=== PATIENT | male | born 1965 | race Caucasian/White ===

== ENCOUNTER 2019-10-08 11:06 | Emergency (ER) | payer OTHER, SELFPAY ==
--- NOTE | ~2019-10-08 | XR_ITS ---
XR chest 2V 10/08/2019 13:39 Indication: Abdomen pain. Left lower lobe infiltrate seen on CT. Procedure: 2 view chest Comparison: CT dated 10/08/2019 Findings: Left lower lobe airspace disease. Small left effusion. Heart size normal. Right lung clear. No edema or pneumothorax. There is an old healed left clavicular fracture. Impression: 1: Left lower lobe infiltrates, likely atelectasis. 2: Small left pleural effusion. Reviewed, dictated and finalized at location A. ING HEAD TENDER Impression: 1: Left lower lobe infiltrates, likely atelectasis. 2: Small left pleural effusion.
--- NOTE | ~2019-10-08 | CT_ITS ---
EXAMINATION: CT abdomen pelvis w con DATE: 10/08/2019 13:02 INDICATION: Epigastric pain TECHNIQUE: Computed tomography (CT) of the abdomen and pelvis was performed with 100 cc Omnipaque 350 intravenous contrast. The dose-length product was 646.58 mGy-cm. Automated exposure control and iter ative reconstruction technique were employed. COMPARISON: None. FINDINGS: Left lower lobe atelectasis. Heart size normal. Small left pleural effusion. There is a gas tric diverticulum. The spleen, pancreas, adrenal glands are unremarkable. Kidneys are normal. There is fatty infiltratio n of the liver. Gallbladder is present. Nonobstructive bowel gas pattern. No evidence for diverticuli tis or appendicitis. No free air or free fluid. No abnormal pelvic masses or fluid collections. Mild lumbar spondylosis. IMPRESSION: 1. Small left pleural effusion with left lower lobe atelectasis. 2: Gastric diverticulum. 3: Hepatic steatosis. Reviewed, dictated and finalized at location A. S AND SERVICE REPRESENTATIVE
[2019-10-08 11:22] VITALS: BP 148/95; PULSE 89; RESP 16; TEMP 36.6; O2SAT 98
--- NOTE | 2019-10-08 12:04 | ED.ABDPAIN ---
HPI - Abdominal Pain General Chief Complaint: Abdominal Pain Stated Complaint: stomach problems Time Seen by Provider: 10/08/19 12:00 Source: patient Mode of arrival: ambulatory Limitations: no limitations History of Present Illness HPI narrative: The pt is a 53 y/o male who presents to the ED c/o LLQ ABD pain onset 2 days ago. The pt has a PMHx of IBS, and has seen a lube worker previously. He did not have a colonoscopy performed. Pt states that he had some crab cakes that he has not eaten for a decade. Pt states that he then went home, and the pain began. The pt notes that the pain is not worsened or improved by anything, but also states that he has not taken any pain medication. He was unable to sleep due to it, and then he experienced N/V the next day. Pt reports N/V, but denies diarrhea, fever, and chills. MD elicited complaint: abdominal pain (LLQ) Pertinent past history: other (IBS) Onset (ago): day(s) (2) Location: LLQ Exacerbating factors: nothing Relieving factors: nothing Context: confirms possible food poisoning (Crab cakes) Associated symptoms: nausea and vomiting Related Data Allergies Allergy/AdvReac Type Severity Reaction Status Date / Time No Known Allergies Allergy Verified 10/08/19 11:27 Review of Systems Review of Systems: All systems reviewed & are unremarkable except as noted in HPI and below Constitutional: Constitutional: Denies chills and Denies fever(s) Gastrointestinal: Gastrointestinal: Reports abdominal pain (LLQ), Denies diarrhea, Reports nausea and Reports vomiting PMFSH Past Medical History Medical History (Updated 10/08/19 @ 15:05 by Armani Centeno DO) Herniated disc IBS (irritable bowel syndrome) Surgical History Surgical History (Updated 10/08/19 @ 12:16 by Carlos Eduardo Tenorio) H/O Spinal surgery Herniated disc Family History Family History (Updated 02/29/16 @ 23:21 by DOCTOR UNKNOWN) Mother Patient's mother is Family history of pancreatic cancer Father Family history of coronary artery disease Grandparent Diabetes mellitus Social History Social History (Updated 10/08/19 @ 12:17 by Carlos Eduardo Tenorio) Smoking status: Former smoker Alcohol intake: current Gender identity (if verbalized by the patient): Male Comments PCP: Dr. Fuentes Exam Narrative: Exam Narrative: APPEARANCE: No acute distress, nontoxic, resting in bed HEENT: Normocephalic, atraumatic, OMM RESPIRATORY: No respiratory distress, clear to auscultation bilaterally with no rhonchi wheezing or rales CARDIOVASCULAR: RRR s murmur ABDOMINAL: Soft, nondistended, tender palpation left lower quadrant, no tenderness left upper quadrant, right upper quadrant right lower quadrant, no rebound or guarding, MUSCULOSKELETAl: Moves all extremities. No clubbing, cyanosis or edema. NEURO: Awake and alert. Following commands, speech normal, no focal deficits SKIN:: Warm, dry. Normal Color PSYCHIATRIC: Normal affect/mood Course Course Emergency Course: Following CT results discussed with patient patient states he has had no recent coughing denies any fevers denies any pain in the left upper quadrant left lower chest with current BNP normal no white count suspect small effusion and will have patient follow-up with his PCP Patient states that they are feeling much better at this time. States abdominal pain has resolved. Repeat abdominal exam shows the patient's abdomen to be soft and nontender. Discussed with patient results of workup and diagnosis. Discussed need for follow-up with primary care physician, reasons to return to the emergency department in proper use of medication. Patient understands and agrees to current treatment plan Consultations Consultation #1: Diussed case with Keely OLIVA, agrees with plan for no antibiotics and to follow up outpatient. Date: 10/08/19 Time: 14:59 Vital Signs Vital signs: Vital Signs Temperature 98 F 10/08/19 11:22 Pulse Rate 89
[2019-10-08 12:26] LABS: Basophils Percent Auto 0.7 % (0.2-1.2); Eosinophils Absolute Auto 0.1 K/mm3 (0-0.3); Eosinophils Percent Auto 1.6 % (0-4.4); Hematocrit 46.6 % (42.0-52.0); Hemoglobin 15.8 g/dL (14.0-18.0); Immature Granulocyte Absolute 0.02 K/mm3 (0.00-0.031); Immature Granulocyte Percent A 0.4 % (0-0.5); Lymphocytes Absolute Auto 0.94 K/mm3 (0.9-3.2); Lymphocytes Percent Auto 16.5 % (18.3-44.2); Mean Corpuscular HGB Conc 33.9 g/dl (32-36); Mean Corpuscular Hemoglobin 30.9 pg (26-34); Mean Platelet Volume 9.8 fl (7.4-10.4); Monocytes Absolute Auto 0.5 K/mm3 (0.1-0.6); Monocytes Percent Auto 8.6 % (2.6-8.5); Neutrophils Absolute Auto 4.1 K/mm3 (1.3-6.7); Neutrophils Percent Auto 72.2 % (45.5-73.1); Platelet Count Result 307 k/mm3 (150-375); Red Blood Count 5.12 M/mm3 (4.6-6.20); Red Cell Distribution Width 12.5 % (11.5-14.5); White Blood Count 5.7 K/mm3 (4.5-10.0)
[2019-10-08] MEDS: LACTATED RINGERS 1,000 ML 999 ML IV CONT (12:31)
[2019-10-08] MEDS: ONDANSETRON INJ 4 MG/2 ML VIAL IV PUSH (12:31)
[2019-10-08 12:39] LABS: Alanine Aminotransferase 33 U/L (4-50); Albumin Level 4.9 g/dL (3.5-5.1); Alkaline Phosphatase 85 U/L (38-126); Aspartate Amino Transferase 31 U/L (17-59); Bilirubin,Total 0.8 mg/dL (0.2-1.3); Blood Urea Nitrogen 14 mg/dL (9-20); Calcium 9.6 mg/dL (8.4-10.2); Carbon Dioxide 28 mmol/L (22-30); Chloride 99 mmol/L (98-107); Estimated CRCL calculation 75 ml/min; Estimated Glomerular Filt Rate > 60; Glucose 101 mg/dL (75-110); Lipase 81 U/L (23-300); Potassium 3.8 mmol/L (3.4-5.0); Sodium 136 mmol/L (137-145)
[2019-10-08 14:04] LABS: NT Pro B Type Natriuretic Pept 33 PG/ML (5-100)
[2019-10-08 16:22] LABS: Add Urine Microscopic? YES; Appearance Urine Clear (Clear); Bilirubin Urine Negative (Negative); Blood Urine 1+ (Negative); Color Urine Yellow (Yellow); Glucose Urine UA Negative (Negative); Ketones Urine 1+ mg/dL (Negative); Leukocyte Esterase Ur Negative LEU/UL (Negative); Mucus Urine Rare /lpf; Nitrate Urine Negative (Negative); Protein Urine Negative (Negative); Urobilinogen Urine Negative mg/dL (<2.0); WBC Urine 0-3 /hpf
[2019-10-08 16:23] LABS: Specific Grav Ur 1.057 (1.001-1.035)
[2019-10-08 16:35] VITALS: BP 132/70; PULSE 86; RESP 18; O2SAT 100
== END 2019-10-08 16:37 | disposition home or self-care (01) ==
PROVIDERS: Emergency Medicine; Emergency Provider Emergency Medicine; PCP Family Medicine
DX: R10.32 Left lower quadrant pain (principal); K58.9 Irritable bowel syndrome, unspecified; Z87.891 Personal history of nicotine dependence; J90 Pleural effusion, not elsewhere classified; K76.0 Fatty (change of) liver, not elsewhere classified; K31.4 Gastric diverticulum
CPT/HCPCS: 36415; 71046; 74177; 80053; 81001; 83690; 83880; 85025; 96361; 96374; 96375; 99284; J0131; J2405; J7120; Q9967

== ENCOUNTER 2021-07-09 13:25 | Inpatient (IN) | payer OTHER, SELFPAY ==
--- NOTE | ~2021-07-09 | XR_ITS ---
EXAMINATION: XR chest 2V DATE: 07/09/2021 14:19 INDICATION: Shortness of breath, weakness, headache and fever TECHNIQUE: frontal view of the chest was obtained. COMPARISON: Chest radiograph dated 10/08/2019 FINDINGS: Subtle patchy airspace opacities in the left mid and lower lung zone. No pleural effusion or pneumoth orax. The cardiomediastinal silhouette is normal. Old healed bilateral clavicle fractures. IMPRESSION: 1. Subtle opacities in the left mid to lower lung zones which could represent pneumonia, atelectasis or asymmetric pulmonary edema. Reviewed, dictated and finalized at location B. ING MANAGER IMPRESSION: 1. Subtle opacities in the left mid to lower lung zones which could represent p neumonia, atelectasis or asymmetric pulmonary edema.
--- NOTE | ~2021-07-09 | CT_ITS ---
EXAMINATION: CTA chest PE protocol EXAM DATE: 07/09/2021 18:16 INDICATION: sob , elevated d dimer . TECHNIQUE: Spiral CTA of the chest (pulmonary arteries) was performed with 100 cc Omnipaque 350 intr avenous contrast injection. Images were acquired during the pulmonary arterial phase. Coronal maxi mum intensity projection 3D-reconstructions were created by the technologist on dedicated workstation . Axial, coronal and sagittal reformatted images were reviewed. The dose-length product (DLP) for t his examination was 417.09 mGy-cm. The exposure was tailored according to patient size (auto mA exp osure control), and iterative reconstruction (ASIR) was used as additional dose reduction technique. There is no prior study for comparison. FINDINGS: Pulmonary arteries are well opacified and without intraluminal filling defects. No thora cic aortic dissection. There is moderate amount of predominantly groundglass airspace disease. Coul d be COVID pneumonia, but with other acute possibilities include influenza, pulmonary edema or hemorr mary. Some chronic processes that can have this appearance include cryptogenic organizing pneumonia, desquamative interstitial pneumonia, nonspecific interstitial pneumonia, drug toxicity, connective ti ssue disease. Please clinically correlate and test as appropriate. Additional left lower lobe subsegmental atelectasis. Small left and trace right pleural effusions. Tr acheobronchial tree is patent. Borderline sized prevascular lymph nodes probably reactive. There i s no pneumothorax. Heart normal in size. No evidence of coronary arterial calcification. Gastric cardial diverticulum. There is thoracic spondylosis without osteoblastic or osteolytic lesions iden tified. IMPRESSION: 1. Moderate amount of bilateral airspace disease, could be COVID or other acute infectious process. Other possibilities above. 2. Left basilar segmental atelectasis. 3. Small left, trace right pleural effusions. Reviewed, dictated and finalized at location A. E CUTTER HELPER IMPRESSION: 1. Moderate amount of bilateral airspace disease, could be COVID or other acut e infectious process. Other possibilities above. 2. Left basilar segmental atelectasis. 3. Small left, trace right pleural effusions.
[2021-07-09 13:47] VITALS: BP 87/55; PULSE 106; RESP 18; TEMP 35.9; O2SAT 93
--- NOTE | 2021-07-09 13:51 | ECG_ITS ---
Measurements Intervals [place] Rate: 102 P: 50 ND: 172 QRS: 77 QRSD: 114 T: 45 QT: 330 QTc: 432 Interpretive Statements SINUS TACHYCARDIA INCOMPLETE RIGHT BUNDLE BRANCH BLOCK DELAYED PRECORDIAL R/S TRANSITION MINIMAL Q WAVES- INFERIOR LEADS BORDERLINE T WAVE ABNORMALITY- ANTERIOR LEADS BASELINE ARTIFACT- I, II, III, AVR, AVL, AVF, V1-V3 BORDERLINE ECG Electronically Signed On 07-09-2021 14:49:49 TURF FARMER by Satnam Castaneda D.O.
--- NOTE | 2021-07-09 14:03 | PC.NURSE ---
arc furnace operator aware of, pt, waiting for direction on room assignment
[2021-07-09 14:17] LABS: Basophils Percent Auto 0.3 % (0.2-1.2); Eosinophils Percent Auto 0.3 % (0-4.4); Hematocrit 43.9 % (42.0-52.0); Hemoglobin 15.7 g/dL (14.0-18.0); Immature Granulocyte Absolute 0.07 K/mm3 (0.00-0.031); Immature Granulocyte Percent A 1.1 % (0-0.5); Lymphocytes Absolute Auto 0.68 K/mm3 (0.9-3.2); Lymphocytes Percent Auto 10.5 % (18.3-44.2); Mean Corpuscular HGB Conc 35.8 g/dl (32-36); Mean Corpuscular Hemoglobin 31.9 pg (26-34); Mean Corpuscular Volume 89.2 fl (80-100); Mean Platelet Volume 9.6 fl (7.4-10.4); Monocytes Absolute Auto 0.9 K/mm3 (0.1-0.6); Monocytes Percent Auto 14.1 % (2.6-8.5); Neutrophils Absolute Auto 4.8 K/mm3 (1.3-6.7); Neutrophils Percent Auto 73.7 % (45.5-73.1); Platelet Count Result 254 k/mm3 (150-375); Red Blood Count 4.92 M/mm3 (4.6-6.20); Red Cell Distribution Width 12.4 % (11.5-14.5); White Blood Count 6.5 K/mm3 (4.5-10.0)
[2021-07-09 14:29] LABS: Alanine Aminotransferase 38 U/L (4-50); Albumin Level 3.8 g/dL (3.5-5.1); Alkaline Phosphatase 58 U/L (38-126); Anion Gap 8 mmol/L (8-16); Aspartate Amino Transferase 57 U/L (17-59); Bilirubin,Total 0.7 mg/dL (0.2-1.3); Blood Urea Nitrogen 17 mg/dL (9-20); Calcium 8.6 mg/dL (8.4-10.2); Carbon Dioxide 30 mmol/L (22-30); Chloride 94 mmol/L (98-107); Estimated CRCL calculation 79 ml/min; Estimated Glomerular Filt Rate > 60; Glucose 121 mg/dL (65-110); Potassium 3.4 mmol/L (3.4-5.0); Sodium 132 mmol/L (137-145)
[2021-07-09 15:05] LABS: Lactate Dehydrogenase 1597 U/L (313-618); Lactic Acid Reflex 1.5 mmol/L (0.7-2.1); Lipase 178 U/L (23-300)
[2021-07-09 15:13] LABS: Troponin I < 0.012 ng/mL (0.000-0.034)
[2021-07-09 15:44] VITALS: BP 115/81; PULSE 90; RESP 16; O2SAT 94
[2021-07-09 15:49] LABS: Ferritin > 1000.00 ng/mL (11.1-264)
[2021-07-09 16:15] LABS: Free T4 Free Thyroxine Reflex 1.76 ng/dL (0.78-2.19)
--- NOTE | 2021-07-09 16:41 | ED.WEAKNESS ---
HPI - Weakness General Chief complaint: Weakness <Nino Colmenares MD - Last Filed: 07/09/21 16:51> Stated complaint: SOB, WEAK <Nino Colmenares MD - Last Filed: 07/09/21 16:51> Time Seen by Provider: 07/09/21 14:19 <Nino Colmenares MD - Last Filed: 07/09/21 16:51> Source: patient <Nino Colmenares MD - Last Filed: 07/09/21 16:51> Mode of arrival: ambulatory <Nino Colmenares MD - Last Filed: 07/09/21 16:51> Limitations: no limitations <Nino Colmenares MD - Last Filed: 07/09/21 16:51> History of Present Illness HPI Narrative: 55-year-old male Complains of severe generalized fatigue and weakness Patient mentioned that 1 day 2 or 3 weeks ago he had a bad headache and since then he just has not really felt right He does not have any particular focal symptoms Specifically he does not have a headache or sinus problems, no sore throat, does not have a cough, he has been eating okay and has no vomiting or diarrhea, and no symptoms The main thing that he notices is that he gets extremely fatigued very quickly as soon as he tries to do anything, however, does not have exertional chest pain or dyspnea Notably not immunized against Covid and does not know if he has been exposed or not <Nino Comlenares MD - Last Filed: 07/09/21 16:51> Related Data Home medications: Home Medications Medication Instructions Recorded Confirmed No Home Medications 07/09/21 07/09/21 <Nino Colmenares MD - Last Filed: 07/09/21 16:51> Allergies/Adverse reactions: Allergies Allergy/AdvReac Type Severity Reaction Status Date / Time No Known Allergies Allergy Verified 07/09/21 14:41 <Nino Colmenares MD - Last Filed: 07/09/21 16:51> Review of Systems Review of Systems: All systems reviewed & are unremarkable except as noted in HPI and below <Nino Colmenares MD - Last Filed: 07/09/21 16:51> Constitutional: Constitutional: Reports no additional constitutional complaints, Denies chills, Reports fatigue, Denies fever(s), Denies headache(s) and Reports weakness <Nino Colmenares MD - Last Filed: 07/09/21 16:51> Eyes: Eyes: Reports no additional eye complaints and Denies change in vision <Nino Colmenares MD - Last Filed: 07/09/21 16:51> ENT: Denies headache(s) and Denies sore throat <Nino Colmenares MD - Last Filed: 07/09/21 16:51> Cardiovascular: Cardiovascular: Denies chest pain and Denies dyspnea <Nino Colmenares MD - Last Filed: 07/09/21 16:51> Respiratory: Respiratory: Denies cough and Denies dyspnea <Nino Colmenares MD - Last Filed: 07/09/21 16:51> Gastrointestinal: Gastrointestinal: Denies abdominal pain, Denies diarrhea, Denies nausea and Denies vomiting <Nino Colmenares MD - Last Filed: 07/09/21 16:51> Genitourinary: Genitourinary: Denies dysuria and Denies urinary frequency <Nino Colmenares MD - Last Filed: 07/09/21 16:51> Musculoskeletal: Musculoskeletal: Reports myalgias, Denies deformity, Denies arthralgias, Denies joint swelling and Denies numbness <Nino Colmenares MD - Last Filed: 07/09/21 16:51> Integumentary/Breasts: Skin/Breast: Denies rash and Denies wounds <Nino Colmenares MD - Last Filed: 07/09/21 16:51> Neurologic: Reports dizziness, Denies syncope, Reports headache(s), Denies focal weakness and Denies numbness <Nino Colmenares MD - Last Filed: 07/09/21 16:51> Psychiatric: Psychiatric: Reports no additional psychiatric complaints <Nino Colmenares MD - Last Filed: 07/09/21 16:51> Endocrine: Endocrine: Reports no additional endocrine complaints <Nino Colmenares MD - Last Filed: 07/09/21 16:51> Hematologic/Lymphatic: Hematologic/Lymphatic: Reports no additional hematologic/lymphatic complaints <Nino Colmenares MD - Last Filed: 07/09/21 16:51> Allergic/Immunologic: Allergic/Immunologic: Reports no additional allergic/immunologic complaints <Nino Colmenares MD - Last Filed: 07/09/21 16:51> [facility] Past Medical History Medical History: Medical History (Reviewed
--- NOTE | 2021-07-09 17:13 | PC.NURSE ---
Attempted to walk pt per 's verbal orders. Due to weakness, pt unable to take more than 2 steps and then needed to get back into bed. SpO2 stayed at 93%.
[2021-07-09 17:15] VITALS: BP 97/66; PULSE 87; RESP 16; O2SAT 94
[2021-07-09 17:15] LABS: Total Triiodothyronine (T3) 0.93 NG/ML (0.97-1.69)
[2021-07-09 17:24] LABS: D Dimer 2.46 ug/mL (<0.48)
--- NOTE | 2021-07-09 18:12 | PC.NURSE ---
Pt to CT.
--- NOTE | 2021-07-09 18:16 | PC.NURSE ---
Pt still unable to provide urine sample at this time.
[2021-07-09] MEDS: DEXAMETHASONE SOD PHOS INJ 4 MG/ML VIAL 6 MG IV PUSH (19:23)
[2021-07-09] MEDS: SODIUM CHLORIDE 0.9% IV 1,000 ML 125 ML IV CONT (19:23)
[2021-07-09 20:00] VITALS: BP 101/70; PULSE 83; RESP 18; TEMP 36.6; O2SAT 95
[2021-07-09 20:45] VITALS: BP 96/69; PULSE 100; RESP 18; O2SAT 94
--- NOTE | 2021-07-09 21:27 | PM.IMHP ---
H&P: HPI History of Present Illness Date/Time: 07/09/21 21:27 this is a 55-year-old male patient who is on vaccinated and stated that he has not had any exposure to COVID-19. The patient stated that he wears his mask out public. Patient came to the emergency room for complaints of generalized fatigue and weakness. The patient stated that he could not walk in to the hospital. He has been weak for 2-3 weeks. He had a headache of few weeks ago and just has not felt right since then. No focal weakness. He currently does not have any sinus problems or headache loss of taste loss of smell nor dizzy of a sore throat or cough or fever no nausea vomiting diarrhea. Chest x-ray was read as subtle opacities in the left mid and lower lung zones which could represent pneumonia atelectasis or asymmetric pulmonary edema. Chest CTA was read as 1. Moderate amount of bilateral airspace disease, could be COVID or other acute infectious process. Other possibilities above. 2. Left basilar segmental atelectasis. 3. Small left, trace right pleural effusions. D-dimers 2.46 sodium 132. Ferritin greater than a 1000. LDH 1597. COVID test is pending. The patient is on room air. The patient has no past medical history and is not on any medication. The patient was started on Decadron. The patient is being admitted to observation status on the date of service of 07/09/2021. Chief Complaint: Weakness Review of Systems Review of Systems: All systems reviewed & are unremarkable except as noted in HPI and below Constitutional: Constitutional: Reports as per HPI and Reports no additional constitutional complaints Eyes: Eyes: Reports as per HPI and Reports no additional eye complaints ENT: Reports system reviewed and no additional complaints, except as documented and Reports Normal hearing present Cardiovascular: Cardiovascular: Reports no additional cardiovascular complaints Respiratory: Respiratory: Reports no additional respiratory complaints and Reports no additional respiratory complaints Gastrointestinal: Gastrointestinal: Reports as per HPI and Reports no additional gastrointestinal complaints Musculoskeletal: Musculoskeletal: Reports no additional musculoskeletal complaints Integumentary/Breasts: Skin/Breast: Reports system reviewed and no additional complaints, except as docu and Reports as per HPI Neurologic: Reports system reviewed and no additional complaints, except as documented, Reports as per HPI and Reports Normal hearing present Psychiatric: Psychiatric: Reports no additional psychiatric complaints and Reports as per HPI Endocrine: Endocrine: Reports no additional endocrine complaints Hematologic/Lymphatic: Hematologic/Lymphatic: Reports no additional hematologic/lymphatic complaints Allergic/Immunologic: Allergic/Immunologic: Reports no additional allergic/immunologic complaints [facility] Past Medical History Medical History BMI 26.0-26.9,adult DDD (degenerative disc disease), lumbosacral Decreased sex drive Dietary counseling and surveillance (03/04/19) Diverticulosis of large intestine without hemorrhage Diverticulum, gastric Herniated disc IBS (irritable bowel syndrome) Low testosterone LUQ abdominal pain Mixed hyperlipidemia Right elbow pain Screening for malignant neoplasm of prostate Shift work sleep disorder Vitamin D deficiency Surgical History Surgical History H/O Spinal surgery Herniated disc Family History Family History Mother Patient's mother is Family history of pancreatic cancer Father Family history of coronary artery disease Acute myocardial infarction Grandparent Diabetes mellitus Social History Social History (Updated 07/09/21 @ 21:45 by Yanique Bloom NP) Social History: The patient is single and lives alone. H
[2021-07-09 21:48] VITALS: BP 101/70; PULSE 83; RESP 18; TEMP 36.6; O2SAT 95
--- NOTE | 2021-07-09 23:36 | ADMGEN ---
This patient, Duane Wolf, was admitted to [facility] Surg Room 311-01. Patient/family oriented to hospital policies and general routines including ID bracelet, bed and alarms, visiting hours, pain management, procedures, bathroom and other care routines, personal items, smoking policy, room service/diet, and visiting hours. Information on how to activate the Rapid Response Team has been discussed. Patient/Family are encouraged to report perceived risks to care and to ask questions if they do not understand what they are told or what they should do.
[2021-07-10] VITALS (9 sets, daily range): BP systolic 95–113; BP diastolic 60–79; PULSE 66–85; RESP 14–18; TEMP 35.8–36.7; O2SAT 91–98
[2021-07-10 07:39] LABS: Basophils Percent Auto 1.1 % (0.2-1.2); Hematocrit 42.5 % (42.0-52.0); Hemoglobin 14.7 g/dL (14.0-18.0); Immature Granulocyte Absolute 0.07 K/mm3 (0.00-0.031); Immature Granulocyte Percent A 1.9 % (0-0.5); Lymphocytes Absolute Auto 0.54 K/mm3 (0.9-3.2); Lymphocytes Percent Auto 14.4 % (18.3-44.2); Mean Corpuscular HGB Conc 34.6 g/dl (32-36); Mean Corpuscular Hemoglobin 30.9 pg (26-34); Mean Corpuscular Volume 89.3 fl (80-100); Mean Platelet Volume 9.7 fl (7.4-10.4); Monocytes Absolute Auto 0.5 K/mm3 (0.1-0.6); Monocytes Percent Auto 13.1 % (2.6-8.5); Neutrophils Absolute Auto 2.6 K/mm3 (1.3-6.7); Neutrophils Percent Auto 69.5 % (45.5-73.1); Platelet Count Result 296 k/mm3 (150-375); Red Blood Count 4.76 M/mm3 (4.6-6.20); Red Cell Distribution Width 12.3 % (11.5-14.5); White Blood Count 3.7 K/mm3 (4.5-10.0)
[2021-07-10 07:54] LABS: Lactic Acid Reflex 1.4 mmol/L (0.7-2.1)
[2021-07-10 07:58] LABS: Alanine Aminotransferase 52 U/L (4-50); Albumin Level 3.8 g/dL (3.5-5.1); Alkaline Phosphatase 56 U/L (38-126); Anion Gap 9 mmol/L (8-16); Aspartate Amino Transferase 60 U/L (17-59); Bilirubin,Total 0.5 mg/dL (0.2-1.3); Blood Urea Nitrogen 21 mg/dL (9-20); Calcium 8.8 mg/dL (8.4-10.2); Carbon Dioxide 29 mmol/L (22-30); Chloride 93 mmol/L (98-107); Estimated CRCL calculation 87 ml/min; Estimated Glomerular Filt Rate > 60; Glucose 156 mg/dL (65-110); Lactate Dehydrogenase 1348 U/L (313-618); Magnesium 2.6 mg/dL (1.6-2.3); Potassium 4.2 mmol/L (3.4-5.0); Sodium 131 mmol/L (137-145)
[2021-07-10 08:48] LABS: Thyroid Stimulating Hormone Reflex 0.976 uIU/mL (0.465-4.68)
[2021-07-10] MEDS: ENOXAPARIN 40 MG/0.4 ML SYRINGE SUB-Q (09:20)
--- NOTE | 2021-07-10 15:54 | PM.IMPN ---
Progress Note: A&P Assessment and Plan (1) Pneumonia due to 2019-nCoV: Code(s): U07.1 - COVID-19; J12.82 - Pneumonia due to coronavirus disease 2019 Status: Acute Assessment and Plan: Unvaccinated Continue with azithromycin and ceftriaxone Follow COVID pcr CTA suggestive of COVID Continue with Decadron On 2L Supportive care (2) Weakness: Code(s): R53.1 - Weakness Status: Acute Assessment and Plan: 2/2 above PT/OT to evaluate and treat Subjective Date/time seen: 07/10/21 15:54 Interval history: Pt seen this morning; labs, vs, diagnostic test reviewed; on 2L, +PALOMO, denies any CP or increasing SOB Review of Systems Review of Systems: All systems reviewed & are unremarkable except as noted in HPI and below Exam Const: General: no acute distress, alert and awake Orientation/consciousness: patient oriented x3 HENMT: Head: normocephalic and atraumatic Ears: hearing grossly normal bilaterally and external ears normal Face and sinus: face symmetric Mouth: Yes Normal oral and palatal mucosa present Eyes: EOM: EOMs intact bilaterally Neck: Neck: full ROM, trachea midline and no JVD Chest: Chest palpation & inspection: normal inspection of the chest Resp: Effort & Inspection: normal respiratory effort Cardio: Jugular venous distension: no JVD Rate: regular rate Rhythm: regular rhythm Heart sounds: S1 normal heart sound present and S2 normal heart sound present GI: GI Palp: Yes Soft to palpation Auscultation: normal bowel sounds : General: Yes no CVA tenderness Skin: General skin exam: normal color Rashes: no rashes Neuro: General: patient oriented x3 and moves all extremities Cranial nerves: Yes Equal, round and reactive pupils present Speech: normal speech Extrem: General: no clubbing, cyanosis or edema Psych: Appearance: grossly normal Affect: normal affect Judgement: Good judgement present (Psych) Objective Data Vital Signs Vital Signs: Vital Signs - 24 hr 07/09/21 17:15 07/09/21 20:00 07/09/21 20:45 Temperature 36.6 C Pulse Rate 87 83 100 Respiratory Rate 16 18 18 Blood Pressure 97/66 L 101/70 96/69 L Pulse Oximetry 94 95 94 07/09/21 21:48 07/10/21 00:00 07/10/21 00:11 Temperature 36.6 C 36.7 C Pulse Rate 83 85 Respiratory Rate 18 18 Blood Pressure 101/70 95/60 L Pulse Oximetry 95 96 95 07/10/21 04:00 07/10/21 04:43 07/10/21 08:00 Temperature 36.6 C 36.6 C 35.8 C L Pulse Rate 70 70 70 Respiratory Rate 18 18 18 Blood Pressure 95/67 L 95/67 L 104/71 Pulse Oximetry 95 98 93 07/10/21 12:00 Temperature 36.1 C L Pulse Rate 68 Respiratory Rate 18 Blood Pressure 113/79 Pulse Oximetry 96 Intake/Output Intake/Output: Intake & Output 07/07/21 07/08/21 07/09/21 07/10/21 23:59 23:59 23:59 23:59 Intake Total 1470 Balance 1470 Meds/Results Medications: Active Medications Generic Name Dose Route Start Last Admin Trade Name Freq PRN Reason Stop Dose Admin Acetaminophen 650 mg 07/09/21 18:52 Acetaminophen 325 Mg Tablet PO Q4H PRN Mild Pain (1-3) or Fever Dexamethasone Sodium Phosphate 6 mg 07/10/21 09:00 07/10/21 09:20 Dexamethasone Sod Phos Inj 10 Mg/Ml 1 Ml Vial IV PUSH 07/18/21 09:01 6 mg DAILY HECTOR Administration Enoxaparin Sodium 40 mg 07/10/21 09:00 07/10/21 09:20 Enoxaparin 40 Mg/0.4 Ml Syringe SUB-Q 40 mg DAILY HECTOR Administration Guaifenesin/Dextromethorphan 10 ml 07/09/21 21:40 Guaifenesin/Dextromethorphan 10 Ml Udc PO Q4H PRN Cough Ceftriaxone Sodium/Dextrose 1 gm in 50 mls @ 100 mls/hr 07/09/21 22:00 07/10/21 03:26 Rocephin 1 Gm/D5w 50 Ml IVPB Infused Q24H HECTOR Infusion Azithromycin 500 mg in 250 mls @ 250 mls/hr 07/09/21 22:00 07/10/21 00:43 Zithromax IVPB Infused Q24H HECTOR Infusion Ondansetron HCl 4 mg 07/09/21 18:52 Ondansetron Inj 4 Mg/2 Ml Vial IV PUSH Q4H PRN Nausea Radiology Results: ITS I
[2021-07-10 20:26] LABS: SARS-CoV-2 RNA PCR Positive
[2021-07-11] VITALS (8 sets, daily range): BP systolic 99–132; BP diastolic 69–81; PULSE 58–78; RESP 14–20; TEMP 35.8–37; O2SAT 90–96
[2021-07-11 07:26] LABS: Alanine Aminotransferase 65 U/L (4-50); Albumin Level 3.5 g/dL (3.5-5.1); Alkaline Phosphatase 53 U/L (38-126); Anion Gap 6 mmol/L (8-16); Aspartate Amino Transferase 55 U/L (17-59); Bilirubin,Total 0.6 mg/dL (0.2-1.3); Blood Urea Nitrogen 24 mg/dL (9-20); Calcium 8.7 mg/dL (8.4-10.2); Carbon Dioxide 31 mmol/L (22-30); Chloride 96 mmol/L (98-107); Estimated CRCL calculation 79 ml/min; Estimated Glomerular Filt Rate > 60; Glucose 144 mg/dL (65-110); Magnesium 2.4 mg/dL (1.6-2.3); Potassium 3.7 mmol/L (3.4-5.0); Sodium 133 mmol/L (137-145)
[2021-07-11] MEDS: ENOXAPARIN 40 MG/0.4 ML SYRINGE SUB-Q (08:20)
[2021-07-11 09:30] LABS: Prothrombin Time 13.4 Seconds (11.1-14.7)
[2021-07-11] MEDS: REMDESIVIR 200 MG/NS 250 ML 200 MG/250 ML BAG 250 MG IVPB (10:05)
[2021-07-11 10:08] LABS: Alanine Aminotransferase 67 U/L (4-50); Estimated CRCL calculation 96 ml/min; Estimated Glomerular Filt Rate > 60
--- NOTE | 2021-07-11 14:55 | PM.IMPN ---
Progress Note: A&P Assessment and Plan (1) Pneumonia due to 2019-nCoV: Code(s): U07.1 - COVID-19; J12.82 - Pneumonia due to coronavirus disease 2019 Status: Acute Assessment and Plan: Unvaccinated D/c azithromycin and ceftriaxone COVID pcr + CTA suggestive of COVID Continue with Decadron Was on 2L, remdesivir added Monitor liver and kidney function Supportive care (2) Weakness: Code(s): R53.1 - Weakness Status: Acute Assessment and Plan: 2/2 above PT/OT to evaluate and treat Subjective Date/time seen: 07/11/21 14:55 Interval history: Pt seen this morning; no acute events overnight; COVID positive; +PALOMO Review of Systems Review of Systems: All systems reviewed & are unremarkable except as noted in HPI and below Exam Const: General: no acute distress, alert and awake Orientation/consciousness: patient oriented x3 HENMT: Head: normocephalic and atraumatic Ears: hearing grossly normal bilaterally and external ears normal Face and sinus: face symmetric Mouth: Yes Normal oral and palatal mucosa present Eyes: Pupils: Equal, round and reactive pupils present EOM: EOMs intact bilaterally Neck: Neck: full ROM, trachea midline and no JVD Chest: Chest palpation & inspection: normal inspection of the chest Resp: Effort & Inspection: normal respiratory effort Cardio: Jugular venous distension: no JVD Rate: regular rate Rhythm: regular rhythm Heart sounds: S1 normal heart sound present and S2 normal heart sound present GI: Auscultation: normal bowel sounds : General: Yes no CVA tenderness Back/Spine/Pelvis: Back: no CVA tenderness Skin: General skin exam: normal color Rashes: no rashes Neuro: General: patient oriented x3 and moves all extremities Cranial nerves: Yes Equal, round and reactive pupils present Speech: normal speech Extrem: General: no clubbing, cyanosis or edema Psych: Appearance: grossly normal Affect: normal affect Judgement: Good judgement present (Psych) Objective Data Vital Signs Vital Signs: Vital Signs - 24 hr 07/10/21 16:00 07/10/21 20:00 07/10/21 22:00 Temperature 36.4 C L 36.5 C Pulse Rate 82 66 72 Respiratory Rate 18 14 18 Blood Pressure 112/76 112/77 Pulse Oximetry 91 94 91 07/11/21 00:00 07/11/21 05:24 07/11/21 08:00 Temperature 36.4 C 37.0 C 36.6 C Pulse Rate 66 69 78 Respiratory Rate 14 16 20 Blood Pressure 107/77 99/69 L 113/75 Pulse Oximetry 94 96 90 07/11/21 12:00 Temperature 36.4 C Pulse Rate 69 Respiratory Rate 20 Blood Pressure 118/75 Pulse Oximetry 94 Intake/Output Intake/Output: Intake & Output 07/08/21 07/09/21 07/10/21 07/11/21 23:59 23:59 23:59 23:59 Intake Total 2290 790 Output Total 0 Balance 2290 790 Meds/Results Medications: Active Medications Generic Name Dose Route Start Last Admin Trade Name Freq PRN Reason Stop Dose Admin Acetaminophen 650 mg 07/09/21 18:52 Acetaminophen 325 Mg Tablet PO Q4H PRN Mild Pain (1-3) or Fever Dexamethasone Sodium Phosphate 6 mg 07/10/21 09:00 07/11/21 08:20 Dexamethasone Sod Phos Inj 10 Mg/Ml 1 Ml Vial IV PUSH 07/18/21 09:01 6 mg DAILY HECTOR Administration Enoxaparin Sodium 40 mg 07/10/21 09:00 07/11/21 08:20 Enoxaparin 40 Mg/0.4 Ml Syringe SUB-Q 40 mg DAILY HECTOR Administration Guaifenesin/Dextromethorphan 10 ml 07/09/21 21:40 Guaifenesin/Dextromethorphan 10 Ml Udc PO Q4H PRN Cough Remdesivir 100 mg in 250 mls @ 250 mls/hr 07/12/21 10:00 IVPB 07/15/21 10:59 Q24H HECTOR Ondansetron HCl 4 mg 07/09/21 18:52 Ondansetron Inj 4 Mg/2 Ml Vial IV PUSH Q4H PRN Nausea Radiology Results: ITS Impressions Chest X-Ray 07/09/21 14:28 IMPRESSION: 1. Subtle opacities in the left mid to lower lung zones which could represent pneumonia, atelectasis or asymmetric pulmonary edema. Chest CTA 07/09/21 18:31 IMPRESSION: 1. Moderate amount of bilateral airspa
[2021-07-12 02:56] VITALS: BP 109/77; PULSE 62; RESP 20; TEMP 36; O2SAT 93
[2021-07-12 02:57] VITALS: BP 109/77; PULSE 62; RESP 20; TEMP 36; O2SAT 93
[2021-07-12 07:55] LABS: Alanine Aminotransferase 56 U/L (4-50); Estimated CRCL calculation 96 ml/min; Estimated Glomerular Filt Rate > 60
[2021-07-12 07:57] LABS: INR 1.1; Prothrombin Time 14.3 Seconds (11.1-14.7)
[2021-07-12 08:00] VITALS: BP 106/75; PULSE 72; RESP 16; TEMP 36.1; O2SAT 92
[2021-07-12] MEDS: ENOXAPARIN 40 MG/0.4 ML SYRINGE SUB-Q (08:39)
[2021-07-12] MEDS: REMDESIVIR 100 MG/NS 250 ML 100 MG/250 ML BAG 250 MG IVPB (10:37)
[2021-07-12 11:57] VITALS: BP 100/64; PULSE 66; RESP 16; TEMP 36.1; O2SAT 93
--- NOTE | 2021-07-12 15:28 | PM.DS ---
DS: Admitting Diagnosis Discharge Date 07/12/2021 Admitting Diagnosis Weakness DS: Discharge Diagnosis Discharge Diagnosis (1) Pneumonia due to 2019-nCoV: Code(s): U07.1 - COVID-19; J12.82 - Pneumonia due to coronavirus disease 2019 Status: Acute Assessment and Plan: Unvaccinated D/c azithromycin and ceftriaxone COVID pcr + CTA suggestive of COVID Continue with Decadron Was on 2L, remdesivir added Monitor liver and kidney function Supportive care (2) Weakness: Code(s): R53.1 - Weakness Status: Acute Assessment and Plan: 2/ above PT/OT to evaluate and treat DS: Summary Hospital Course Reason for hospitalization: this is a 55-year-old male patient who is on vaccinated and stated that he has not had any exposure to COVID-19. The patient stated that he wears his mask out public. Patient came to the emergency room for complaints of generalized fatigue and weakness. The patient stated that he could not walk in to the hospital. He has been weak for 2-3 weeks. He had a headache of few weeks ago and just has not felt right since then. No focal weakness. He currently does not have any sinus problems or headache loss of taste loss of smell nor dizzy of a sore throat or cough or fever no nausea vomiting diarrhea. Chest x-ray was read as subtle opacities in the left mid and lower lung zones which could represent pneumonia atelectasis or asymmetric pulmonary edema. Chest CTA was read as 1. Moderate amount of bilateral airspace disease, could be COVID or other acute infectious process. Other possibilities above. 2. Left basilar segmental atelectasis. 3. Small left, trace right pleural effusions. D-dimers 2.46 sodium 132. Ferritin greater than a 1000. LDH 1597. COVID test is pending. The patient is on room air. The patient has no past medical history and is not on any medication. The patient was started on Decadron. The patient is being admitted to observation status on the date of service of 07/09/2021. Chief Complaint: Weakness Hospital Course: Unvaccinated D/c azithromycin and ceftriaxone COVID pcr + CTA suggestive of COVID Continue with Decadron Was on 2L, remdesivir added Monitor liver and kidney function Supportive care patient remains clinically stable and has no new complaint will discharge patient today Time Spent with Patient Time attestation: Total time spent providing and/or coordinating discharge services: Exam Narrative: Patient is comfortable, NAD HEENT: eyes are clear and none icteric LUNGS:CTA HEART: RR S1S2 ABD: BS+, Soft and nontender Lower extremities: no edema SKIN: nonjaundiced Neuro: grossly intact. DS: Data Data Completed and Pending Labs on day of discharge: Labs from last 24 hours 07/12/21 07/12/21 06:59 06:59 PT 14.3 INR 1.1 Creatinine 0.90 Estim Creat Clear Calc 96 Estimated GFR > 60 ALT 56 H Discharge Plan Discharge Attending physician on discharge: Kaci Stacy Consulting providers: Yanique Bloom ; Nilson Craven ; Claudio Barragan ; Satnam Castaneda ; Karine Dc Discharging Clinician: Kaci Stacy Patient Disposition: Home, Self-Care Activity: as tolerated Diet: heart healthy Discharge Instructions: patient is instructed to wear mask and follow social distancing, patient to follow up with his primary care provider, Patient is instructed if any symtoms redevelop to go to nearest ER Patient Instructions: Antibiotic Form, Pain Management (DC) Stand Alone Forms: General Discharge Information Follow-up/Referrals: Darrius Fuentes MD [Primary Care Provider] - Discharge Medications: New prednisone 10 mg tablet 10 mg PO DAILY Qty: 30 RF: 0 Date of admission: 07/10/21 11:33 Primary Care Provider: Darrius Fuentes Admitting Provider: Penny Parr Attending physician on admission: Kaci Stacy Condition: Stable Quality VTE Prophylaxis VTE
== END 2021-07-12 15:21 | disposition home or self-care (01) | DRG 177 ==
LOC: ANHED 18:51 → ANH3MEDSUR 19:42
PROVIDERS: Emergency Medicine; Nurse Practitioner; Nurse Practitioner Adult Health; Admitting Provider Internal Medicine; Emergency Provider Family Medicine; PCP Family Medicine; Visit Provider Family Medicine
DX: U07.1 COVID-19 (principal); J12.82 Pneumonia due to coronavirus disease 2019; R53.1 Weakness; E78.2 Mixed hyperlipidemia; F17.210 Nicotine dependence, cigarettes, uncomplicated
CPT/HCPCS: 36415; 71046; 71275; 80053; 82533; 82565; 82728; 83605; 83615; 83690; 83735; 84439; 84443; 84460; 84480; 84484; 85025; 85380; 85610; 93005; 96361; 96365; 96375; 96376; 97110; 97116; 97161; 97165; 97535; 99285; C9803; G0378; J0456; J0696; J1100; J1650; J7030; Q9967; U0003; U0005